=== PATIENT | male | born 1975 | race Caucasian/White ===

== ENCOUNTER 2016-10-01 12:29 | Emergency (ER) | payer OTHER ==
[2016-10-01] MEDS ORDERED: LISINOPRIL-HCT1 EAC1 PO (12:31)
[2016-10-01] MEDS ORDERED: MULTIVITAMINS1 EAC6 PO (12:47)
[2016-10-01] MEDS ORDERED: [UNRECOGNIZED DRUG - CODE] PO (12:47)
[2016-10-01] MEDS ORDERED: FISH OIL 11600 MG/5 PO (12:48)
[2016-10-01 13:34] LABS: BASO % 0.3 % (0-2); EOS % 1.8 % (0-7); EOSINOPHIL ABSOLUTE COUNT 0.1 tho/cmm (0.0-0.7); HCT-HEMATOCRIT 40.9 % (36.0-53.5); HGB-HEMOGLOBIN 14.3 gm/dl (13.5-17.0); LYMPH % 46.5 % (20-45); LYMPH ABSOLUTE COUNT 3.3 tho/cmm (0.8-4.5); MCH (MEAN CORPUSCULAR HGB) 30.2 pg (28.0-32.0); MCV (MEAN CELL VOLUME) 86.3 fl (82.0-96.0); MEAN PLATELET VOLUME 8.9 cmc (9.4-12.4); MONO % 6.7 % (0-12); MONOCYTE ABSOLUTE COUNT 0.5 tho/cmm (0.0-1.2); NEUTROPHIL ABSOLUTE COUNT 3.1 tho/cmm (1.6-8.0); NEUTROPHIL-AUTOMATED 3.1 tho/cmm (1.6-8.0); NEUTROPHILS % 44.7 % (40-80); PLATELET COUNT 358 tho/cmm (150-450); RED BLOOD COUNT 4.74 mil/cmm (4.40-5.70); RED CELL DISTRIBUTION WIDTH 13.2 % (12.4-16.4)
[2016-10-01 13:56] LABS: ANION GAP 10 mmol/L (0-20); BLOOD UREA NITROGEN 11 mg/dl (6-24); CALCIUM 8.7 mg/dl (8.5-10.5); CARBON DIOXIDE-VENOUS 28 mmol/L (22-32); CHLORIDE 106 mmol/l (96-110); CREATININE 0.98 mg/dl (0.60-1.30); GLUCOSE 87 mg/dL (70-110); MAGNESIUM 2.5 mg/dl (1.8-2.6); POTASSIUM 4.3 mmol/L (3.7-5.1); SODIUM 140 mmol/L (135-145); eGFR VALUE FOR BLACK >90 mL/Min
[2016-10-01 14:10] LABS: TSH-THYROID STIMULATING HORM. 1.85 uIU/ml (0.40-3.80)
== END 2016-10-01 16:40 ==
LOC: EDMED 12:29
PROVIDERS: Emergency Medicine
DX: I48.91 Unspecified atrial fibrillation (principal); I10 Essential (primary) hypertension; Z87.891 Personal history of nicotine dependence
CPT/HCPCS: C8929; J7030